=== PATIENT | female | born 1930 | race Caucasian/White ===

== ENCOUNTER 2018-06-19 13:33 | Inpatient (IN) | payer MEDICARE, OTHER ==
[2018-06-19 14:02] LABS: ADD MAN DIFF? NO
[2018-06-19] MEDS: MECLIZINE 12.5 MG TAB PO (14:02)
[2018-06-19] MEDS: SOD CHLORIDE 0.9% 1,000 ML IV ×3 (14:02→17:38)
[2018-06-19] MEDS: ONDANSETRON 4 MG INJ IV ×2 (14:02→15:38)
[2018-06-19 14:06] LABS: ABNORMAL IP MESSAGE 1; BASOPHILS % 0.3 % (0.0-2.0); EOSINOPHILS % 0.1 % (0.0-7.0); HEMATOCRIT 39.3 % (37.0-47.0); HEMOGLOBIN 13.6 g/dl (12.0-16.0); LYMPHOCYTES # 0.5 10^3/ul (0.8-2.9); LYMPHOCYTES % 5.8 % (15.0-51.0); MEAN CORPUSCULAR HGB CONC 34.6 g/dl (32.0-37.0); MEAN CORPUSCULAR VOLUME 92.5 fl (82.0-101.0); MEAN PLATELET VOLUME 9.8 fl (7.4-10.4); MONOCYTE # 0.4 10^3/ul (0.3-0.9); MONOCYTES % 4.7 % (0.0-11.0); NEUTROPHIL # 7.8 10^3/ul (1.6-7.5); NEUTROPHILS % 88.8 % (39.0-77.0); PLATELET COUNT 221 10^3/UL (140-415); RED BLOOD COUNT 4.25 10^6/ul (4.20-5.40)
[2018-06-19 14:06] LABS: WHITE BLOOD COUNT 8.7 10^3/ul (4.8-10.8)
[2018-06-19 14:07] LABS: POSITIVE DIFF @See below
[2018-06-19 14:24] LABS: ALANINE AMINOTRANSFERASE 31 IU/L (13-69); ALBUMIN 4.5 g/dl (3.3-4.9); ALBUMIN/GLOBULIN RATIO 1.66; ALKALINE PHOSPHATASE 86 IU/L (42-121); ANION GAP 11 (5-13); ASPARTATE AMINO TRANSFERASE 33 IU/L (15-46); BILIRUBIN,INDIRECT 0.6 mg/dl (0-1.1); BILIRUBIN,TOTAL 0.6 mg/dl (0.2-1.3); BLOOD UREA NITROGEN 10 mg/dl (7-20); CALCIUM 9.7 mg/dl (8.4-10.2); CARBON DIOXIDE 26 mmol/L (21-31); CHLORIDE 91 mmol/L (97-110); CREATININE 0.49 mg/dl (0.44-1.00); GLUCOSE 115 mg/dl (70-220); POTASSIUM 3.9 mmol/L (3.5-5.1); TOTAL PROTEIN 7.2 g/dl (6.1-8.1)
[2018-06-19 14:25] LABS: INR 0.99; PROTIME 13.2 Sec (11.9-14.9)
[2018-06-19 14:26] LABS: PARTIAL THROMBOPLASTIN TIME 26.4 Sec (23.0-35.0)
[2018-06-19 14:36] LABS: TROPONIN-I < 0.012 ng/ml (0.000-0.120)
[2018-06-19 14:47] LABS: SODIUM 128 mmol/L (135-144)
[2018-06-19] MEDS: LORAZEPAM 2 MG INJ IV (15:13)
[2018-06-19] MEDS: IBUPROFEN 200 MG TAB PO (15:32)
[2018-06-19 15:56] LABS: ADD UMIC NO; UR ASCORBIC ACID NEGATIVE (NEGATIVE); UR BILIRUBIN (Dip) NEGATIVE (NEGATIVE); UR BLOOD (Dip) NEGATIVE (NEGATIVE); UR CLARITY CLEAR (CLEAR); UR COLOR STRAW (YELLOW); UR GLUCOSE (Dip) NEGATIVE (NEGATIVE); UR KETONES (Dip) NEGATIVE (NEGATIVE); UR LEUKOCYTE ESTERASE (Dip) NEGATIVE Leu/ul (NEGATIVE); UR NITRITE (Dip) NEGATIVE (NEGATIVE); UR SPECIFIC GRAVITY (Dip) 1.008 (1.003-1.030); UR TOTAL PROTEIN (Dip) NEGATIVE (NEGATIVE); UR UROBILINOGEN (Dip) NEGATIVE (NEGATIVE)
[2018-06-19] MEDS ORDERED: ONDANSETRON 4 MG INJ IV ×2 (17:30→18:00)
[2018-06-19] MEDS ORDERED: ACETAMINOPHEN 325 MG TAB PO ×2 (17:30→18:00)
[2018-06-19] MEDS ORDERED: NACL 0.9% 3 ML SYG IV (18:00)
[2018-06-19] MEDS: DOCUSATE SODIUM 100 MG CAP PO (18:41)
[2018-06-19] MEDS: ATORVASTATIN 20 MG TAB PO (21:03)
[2018-06-19] MEDS: ALPRAZOLAM 0.5 MG TAB PO (21:03)
[2018-06-20 06:16] LABS: ADD MAN DIFF? NO
[2018-06-20 06:23] LABS: BASOPHIL # 0.1 10^3/ul (0.0-0.1); BASOPHILS % 0.8 % (0.0-2.0); EOSINOPHILS # 0.1 10^3/ul (0.0-0.5); EOSINOPHILS % 1.3 % (0.0-7.0); HEMATOCRIT 37.2 % (37.0-47.0); HEMOGLOBIN 12.8 g/dl (12.0-16.0); LYMPHOCYTES # 1.1 10^3/ul (0.8-2.9); LYMPHOCYTES % 18.3 % (15.0-51.0); MEAN CORPUSCULAR HGB CONC 34.4 g/dl (32.0-37.0); MEAN PLATELET VOLUME 10.2 fl (7.4-10.4); MONOCYTE # 0.6 10^3/ul (0.3-0.9); MONOCYTES % 9.2 % (0.0-11.0); NEUTROPHIL # 4.2 10^3/ul (1.6-7.5); NEUTROPHILS % 69.9 % (39.0-77.0); PLATELET COUNT 201 10^3/UL (140-415); RED CELL DISTRIBUTION WIDTH 13.3 % (11.5-14.5)
[2018-06-20] MEDS: DOCUSATE SODIUM 100 MG CAP PO ×2 (06:48→17:49)
[2018-06-20] MEDS: METOCLOPRAMIDE 5 MG TAB PO ×3 (06:48→17:49)
[2018-06-20 07:04] LABS: HEMOGLOBIN A1C 5.3 % (0-5.9)
[2018-06-20 07:07] LABS: ALANINE AMINOTRANSFERASE 25 IU/L (13-69); ALBUMIN 3.7 g/dl (3.3-4.9); ALKALINE PHOSPHATASE 59 IU/L (42-121); ANION GAP 9 (5-13); ASPARTATE AMINO TRANSFERASE 24 IU/L (15-46); BILIRUBIN,INDIRECT 0.8 mg/dl (0-1.1); BILIRUBIN,TOTAL 0.8 mg/dl (0.2-1.3); BLOOD UREA NITROGEN 8 mg/dl (7-20); CALCIUM 9.4 mg/dl (8.4-10.2); CARBON DIOXIDE 26 mmol/L (21-31); CHLORIDE 99 mmol/L (97-110); CREATININE 0.55 mg/dl (0.44-1.00); GLUCOSE 87 mg/dl (70-220); MAGNESIUM 1.8 mg/dl (1.7-2.5); POTASSIUM 3.4 mmol/L (3.5-5.1); SODIUM 134 mmol/L (135-144)
[2018-06-20] MEDS: CLOPIDOGREL 75 MG TAB PO (09:18)
[2018-06-20] MEDS: ASPIRIN (EC) 81 MG TAB PO (09:18)
[2018-06-20] MEDS: FAMOTIDINE 20 MG TAB PO (09:18)
[2018-06-20] MEDS: CHOLECALCIFEROL 2,000 UNIT CAP PO (09:18)
[2018-06-20] MEDS: POTASSIUM CHLORIDE (SR) 20 MEQ TAB PO (09:23)
[2018-06-20] MEDS: traMADol 50 MG TAB PO (09:23)
[2018-06-20 13:38] LABS: CHOLESTEROL 125 mg/dl (100-200)
[2018-06-20 13:38] LABS: CHOL/HDL RATIO 1.9 RATIO; HDL CHOLESTEROL 63 mg/dl (33-92); LDL CHOLESTEROL,CALCULATED 53 mg/dl; TRIGLYCERIDES 43 mg/dl (0-149)
[2018-06-20] MEDS: MECLIZINE 12.5 MG TAB PO (18:30)
[2018-06-20] MEDS: SOD CHLORIDE 0.9% 1,000 ML IV (18:31)
[2018-06-20] MEDS: ALPRAZOLAM 0.5 MG TAB PO (20:46)
[2018-06-20] MEDS: ATORVASTATIN 20 MG TAB PO (20:46)
[2018-06-21 06:45] LABS: ALBUMIN 3.6 g/dl (3.3-4.9); ANION GAP 7 (5-13); BLOOD UREA NITROGEN 10 mg/dl (7-20); CALCIUM 9.8 mg/dl (8.4-10.2); CARBON DIOXIDE 26 mmol/L (21-31); CHLORIDE 102 mmol/L (97-110); CREATININE 0.48 mg/dl (0.44-1.00); GLUCOSE 92 mg/dl (70-220); MAGNESIUM 1.9 mg/dl (1.7-2.5); PHOSPHORUS 3.3 mg/dl (2.5-4.9); POTASSIUM 3.7 mmol/L (3.5-5.1); SODIUM 135 mmol/L (135-144)
[2018-06-21] MEDS: FAMOTIDINE 20 MG TAB PO (08:42)
[2018-06-21] MEDS: METOCLOPRAMIDE 5 MG TAB PO ×3 (08:42→17:30)
[2018-06-21] MEDS: ASPIRIN (EC) 81 MG TAB PO (08:42)
[2018-06-21] MEDS: CHOLECALCIFEROL 2,000 UNIT CAP PO (08:42)
[2018-06-21] MEDS: DOCUSATE SODIUM 100 MG CAP PO ×2 (08:42→17:33)
[2018-06-21] MEDS: CLOPIDOGREL 75 MG TAB PO (08:42)
[2018-06-21] MEDS: LIDOCAINE 5% PATCH TD (10:57)
== END 2018-06-21 18:18 | disposition home health service (06) | DRG 103 ==
LOC: 6WM 06-21 03:32 → E/R 13:33 → 6WM 17:07
DX: R51 Headache (principal); E87.1 Hypo-osmolality and hyponatremia; I69.851 Hemiplegia and hemiparesis following other cerebrovascular disease affecting right dominant side; R42 Dizziness and giddiness; E87.6 Hypokalemia; Z79.82 Long term (current) use of aspirin; Z90.710 Acquired absence of both cervix and uterus
CPT/HCPCS: 70450; 80053; 80061; 80069; 81003; 83036; 83735; 84484; 85025; 85610; 85730; 87086; 93005; 93306; 96374; 96375; 96376; 97161; 97167; 99285-25